=== PATIENT | female | born 1950 | race Caucasian/White ===

== ENCOUNTER → 2025-04-29 | Outpatient (CLI) | payer MEDICARE, BC | LOC: M WUC 13:39 | DX: M25.532 Pain in left wrist (principal); S62.025A Nondisplaced fracture of middle third of navicular [scaphoid] bone of left wrist, initial encounter for closed fracture; Y92.9 Unspecified place or not applicable; Y93.9 Activity, unspecified; Y99.9 Unspecified external cause status; X58.XXXA Exposure to other specified factors, initial encounter ==